=== PATIENT | female | born 1975 | race Caucasian/White ===

== ENCOUNTER → 2017-12-30 | Outpatient (CLI) | payer BC ==
[2017-12-30 08:20] LABS: Basophils % (A) 1 %; Eosinophils # (A) 0.1 k/uL (0-0.7); Eosinophils % (A) 2 %; HCT 38.6 % (34.0-46.0); HGB 12.9 gm/dL (11.4-16.0); Lymphocytes # (A) 1.5 k/uL (1.0-4.8); Lymphocytes % (A) 26 %; MCH 30.6 pg (25.0-35.0); MCHC 33.5 g/dL (31.0-37.0); MCV 91.5 fL (80.0-100.0); Mean Platelet Volume 6.5; Monocytes # (A) 0.4 k/uL (0-1.0); Monocytes % (A) 7 %; Neutrophils # (A) 3.7 k/uL (1.3-7.7); Neutrophils % (A) 63 %; Platelet Count 358 k/uL (150-450); RBC 4.22 m/uL (3.80-5.40); RDW 13.3 % (11.5-15.5); WBC 5.9 k/uL (3.8-10.6)
== END | disposition home or self-care (01) ==
LOC: LABPAT 07:54
PROVIDERS: ATTEND Obstetrics & Gynecology
DX: Z01.812 Encounter for preprocedural laboratory examination (principal)
CPT/HCPCS: 36415; 85025

== ENCOUNTER → 2018-01-07 | Day surgery (SDC) | payer BC ==
[2018-01-01 15:32] VITALS: BMI 41.3
--- NOTE | 2018-01-06 20:11 | P.HPOB ---
History of Present Illness H&P Date: 01/06/18 Chief Complaint: Menorrhagia with irregular cycle This is a 42-year-old female 3 para 2 who presents for dilation and curettage with hysteroscopy and NovaSure endometrial ablation secondary to menorrhagia with irregular cycle. She went off of Depo-Provera in approximately June 2017 and did have a period at the end of July. At that time the bleeding was very heavy where she was going through a pad and tampon every hour. She started back on the Depo-Provera in September but has still been having bleeding. She has been bleeding for almost a month at this time. She also has a lot of cramping and is still changing a tampon every hour. Her pelvic ultrasound showed a uterus measuring 8.6 x 3.8 x 4.4 cm with 2 small fibroids the largest of which was 2.2 cm. She also had a submucosal fibroid measuring 0.7 cm and normal ovaries noted bilaterally. Obstetrical history: She 3 P2. History of 2 deliveries and 1 miscarriage. Gynecologic history: No history of sexual transmitted diseases. Her has had a vasectomy. Social history: She is . She works for [employer] in the office. Review of Systems Constitutional: Denies chills, Denies fever Eyes: denies blurred vision, denies pain Ears, nose, mouth and throat: Denies headache, Denies sore throat Cardiovascular: Denies chest pain, Denies shortness of breath Respiratory: Denies cough Gastrointestinal: Denies abdominal pain, Denies diarrhea, Denies nausea, Denies vomiting Genitourinary: Reports menorrhagia, Reports pelvic pain Menstruation: Reports menses 8 or > days, Reports menses variable, Reports period heavy Musculoskeletal: Denies myalgias Integumentary: Denies pruritus, Denies rash Neurological: Denies numbness, Denies weakness Psychiatric: Reports anxiety Endocrine: Reports fatigue, Denies weight change Past Medical History Past Medical History: Hyperlipidemia History of Any Multi-Drug Resistant Organisms: None Reported Past Surgical History: Bariatric Surgery, Section, Hernia Repair Additional Past Surgical History / Comment(s): GASTRIC SLEEVE, C SECTION X2 Past Anesthesia/Blood Transfusion Reactions: No Reported Reaction Past Psychological History: Anxiety Smoking Status: Never smoker Past Alcohol Use History: Occasional Past Drug Use History: None Reported - Past Family History Mother Additional Family Medical History / Comment(s): ANEURYSM Medications and Allergies Home Medications Medication Instructions Recorded Confirmed Type Venlafaxine HCl 37.5 mg PO Q48H 01/04/18 01/04/18 History Allergies Allergy/AdvReac Type Severity Reaction Status Date / Time No Known Allergies Allergy Verified 01/01/18 15:14 Exam Osteopathic Statement: *. No significant issues noted on an osteopathic structural exam other than those noted in the History and Physical/Consult. HEENT: Within normal limits Heart: Regular rate and rhythm Lungs: Clear to auscultation bilaterally Abdomen: Soft, nontender Pelvic exam: Uterus is anteverted, I highly tender, with no adnexal masses or tenderness palpated. Extremities: Negative Homans Assessment and Plan (1) Menorrhagia with irregular cycle Status: Acute Code(s): N92.1 - EXCESSIVE AND FREQUENT MENSTRUATION WITH IRREGULAR CYCLE SNOMED Code(s): 347396620 Plan: Proceed with dilation and curettage with hysteroscopy and NovaSure endometrial ablation. I have discussed the risks, benefits, and alternative therapies for the above- mentioned procedure and for both sedation/anesthesia as well as necessary blood products administration, if indicated, as they pertain to this patient. The patient has indicated her understanding and acceptance of the risks and procedures discussed.
[~2018-01-07] MED LIST: DEXAMETHASONE SOD PHOSPHATE 10 MG/ML 1 ML VIAL IV ONE; HYDROmorphone 0.5 MG/0.5 ML SYRINGE IVP PRN; KETOROLAC 30 MG/ML 1 ML VIAL ONE; LACTATED RINGERS 1,000 ML IV SCH; LIDOCAINE 1% 20 ML VIAL (10MG/ML) FOR IV START INTRADERMA PRN; LIDOCAINE 1% INJ 10MG/ML (20 ML MDV) ONE; MIDAZOLAM 2 MG/2 ML VIAL IV PRN; MIDAZOLAM 2 MG/2 ML VIAL ONE; ONDANSETRON 4 MG/2 ML VIAL IVP ONE; PROPOFOL 10 MG/ML 20 ML VIAL IV ONE; Pre Op ABX Message 1 EACH MISC MISCELLANE ONE; SCOPOLAMINE 1.5MG/72HR PATCH TRANSDERM ONE; SUCCINYLCHOLINE CHLORIDE 100 MG/5 ML SYR IV ONE; fentaNYL (PF) 50 MCG/ML 2 ML AMP ONE
--- NOTE | 2018-01-07 08:09 | P.OP ---
Date of Procedure: 01/07/18 Preoperative Diagnosis: Menorrhagia with irregular cycle Postoperative Diagnosis: Same Procedure(s) Performed: Hysteroscopy with dilation and curettage. Failed endometrial ablation Anesthesia: GOLD Surgeon: Meg Johnson Estimated Blood Loss (ml): 20 Pathology: other (Endometrial curettings) Condition: stable Disposition: same day Indications for Procedure: This is a 42-year-old female 3 para 2 who presents for dilation and curettage with hysteroscopy and NovaSure endometrial ablation secondary to menorrhagia with irregular cycle. She went off of Depo-Provera in approximately June 2017 and did have a period at the end of July. At that time the bleeding was very heavy where she was going through a pad and tampon every hour. She started back on the Depo-Provera in September but has still been having bleeding. She has been bleeding for almost a month at this time. She also has a lot of cramping and is still changing a tampon every hour. Her pelvic ultrasound showed a uterus measuring 8.6 x 3.8 x 4.4 cm with 2 small fibroids the largest of which was 2.2 cm. She also had a submucosal fibroid measuring 0.7 cm and normal ovaries noted bilaterally. Operative Findings: Uterus is mid to anteverted position with no adnexal masses palpated. Cervix is sounded to 3-1/2 cm and uterus is sounded to 10 cm. Upon hysteroscopy, a dyssynchronous endometrial pattern was noted with some shedding. Both tubal ostia are visualized. No other specific abnormalities were visualized however visualization was difficult secondary to her bleeding. NovaSure ablation was not able to be accomplished because cavity assessment could not be passed after 3 times and changing the array. Description of Procedure: The patient is taken to the operating room. She is placed in the dorsal lithotomy position after general anesthesia was given. She is prepped and draped in the normal sterile fashion. Bladder is drained with a catheter and then removed. Pelvic exam is performed under anesthesia. Uterus is found to be mid to anteverted with no adnexal masses. She is placed in slight Trendelenburg position. A right angle retractor is used to visualize the cervix. The anterior lip of the cervix is grasped with a single-tooth tenaculum. Cervix is sounded to 3.5 cm. Uterus is sounded to 10 cm. Cervix is gently dilated with Castellano dilators until a hysteroscope could be passed. Hysteroscopy is performed using normal saline. The above noted findings are noted. Pictures are taken. Next a polyp forceps is introduced. A moderate amount of tissue was obtained. Next medium-sized size sharp curette was placed. A moderate to large amount of endometrial curettings were obtained. Next NovaSure array was inserted into the endometrial cavity. Length was set at 6.5 cm and width was determined to be 4.1 cm. Next cavity assessment was attempted and failed 3 times, each time removing the array and replacing. A new array was obtained and one further attempts was tried but cavity assessment still did not pass. Hysteroscope was then reinserted and no perforation was visualized. No active bleeding was noted. Hysteroscope was removed. Single- tooth tenaculum was removed from the anterior lip of the cervix. Minimal bleeding was noted. All other instruments removed from the vagina. Sponge counts were correct. Patient is taken to recovery room in stable condition.
[2018-01-07 08:15] VITALS: TEMP 97.2
[2018-01-07 09:16] VITALS: BP 138/83; PULSE 76; RESP 16
== END ==
LOC: OR 06:17
PROVIDERS: ATTEND Obstetrics & Gynecology
DX: F41.9 Anxiety disorder, unspecified (principal); Z98.84 Bariatric surgery status; Z79.899 Other long term (current) drug therapy; F32.9 Major depressive disorder, single episode, unspecified; K21.9 Gastro-esophageal reflux disease without esophagitis
CPT/HCPCS: 81025; 88305; 58563; J2250; J1100; J2405; J2001; J3010; J1885; J0330; J2704